=== PATIENT | male | born 1985 | race Caucasian/White ===

== ENCOUNTER 2019-09-01 01:12 | Emergency (ER) | payer MEDICAID ==
[~2019-09-01] VITALS: Ht 167.6 cm; Wt 120.2 kg
[2019-09-01 01:17] VITALS: Ht 167.6 cm; Wt 120.2 kg
[2019-09-01 02:06] LABS: UA SPECIFIC GRAVITY 1.025 (1.005-1.035); microscopic required? YES; urine erythrocyte 3+ (NEGATIVE)
[2019-09-01 02:06] LABS: BASOPHIL % 0.9 % (0-2); PLATELET COUNT 218 x10^3mcL (130-400); RED CELL DISTRIBUTION WIDTH 14.3 % (11.5-14.5)
[2019-09-01 02:10] LABS: CALCIUM 9.2 mg/dL (8.5-10.1); CARBON DIOXIDE 30.1 mmol/L (21-32); CREATININE SERUM 1.7 mg/dL (0.7-1.3); POTASSIUM SERUM 3.7 mmol/L (3.5-5.1)
[2019-09-01 02:14] LABS: ALBUMIN 3.8 g/dL (3.4-5.0); BILIRUBIN TOTAL 0.6 mg/dL (0.20-1.00); URIC ACID 11.8 mg/dL (3.5-7.2)
[2019-09-01 03:23] VITALS: BP 131/84
== END 2019-09-01 03:23 | disposition home or self-care (01) ==
LOC: ED 01:12
PROVIDERS: Emergency Medicine
DX: N20.0 Calculus of kidney (principal); E11.65 Type 2 diabetes mellitus with hyperglycemia; E66.9 Obesity, unspecified; Z68.41 Body mass index [BMI] 40.0-44.9, adult
CPT/HCPCS: J1885; J2405

== ENCOUNTER 2019-12-14 15:38 | Emergency (ER) | payer MEDICAID ==
[~2019-12-14] VITALS: Ht 167.6 cm; Wt 114.8 kg
[2019-12-14 15:49] VITALS: Ht 167.6 cm; Wt 114.8 kg
[2019-12-14 17:46] LABS: BASOPHIL % 0.3 % (0-2); PLATELET COUNT 189 x10^3mcL (130-400); RED CELL DISTRIBUTION WIDTH 13.3 % (11.5-14.5)
[2019-12-14 17:53] LABS: ALKALINE PHOSPHATASE 131 U/L (46-116); ALT/SGPT 169 U/L (16-63); AST/SGOT 80 U/L (15-37); BILIRUBIN TOTAL 0.6 mg/dL (0.20-1.00); CALCIUM 9.4 mg/dL (8.5-10.1); CARBON DIOXIDE 28.3 mmol/L (21-32); CHLORIDE SERUM 97 mmol/L (98-107); CREATININE SERUM 1.3 mg/dL (0.7-1.3); GFR1 > 60 mL/min; LIPASE 486 IU/L (73-393); POTASSIUM SERUM 4.4 mmol/L (3.5-5.1); SODIUM SERUM 136 mmol/L (136-145)
[2019-12-14 17:55] LABS: TOTAL PROTEIN, SERUM 8.7 g/dL (6.4-8.2)
[2019-12-14 17:56] LABS: ALBUMIN 4.1 g/dL (3.4-5.0); GLUCOSE SERUM 463 mg/dL (74-106)
[2019-12-14 20:30] VITALS: BP 140/103
== END 2019-12-14 20:30 | disposition home or self-care (01) ==
LOC: ED 15:38
PROVIDERS: Student in an Organized Health Care Education/Training Program
DX: E11.65 Type 2 diabetes mellitus with hyperglycemia (principal); I86.1 Scrotal varices; N50.82 Scrotal pain
CPT/HCPCS: 82962

== ENCOUNTER 2019-12-15 19:05 | Emergency (ER) | payer MEDICAID ==
[~2019-12-15] VITALS: Ht 172.7 cm; Wt 114.3 kg
[2019-12-15 19:21] VITALS: Ht 172.7 cm; Wt 114.3 kg
[2019-12-15 20:20] VITALS: BP 150/97
== END 2019-12-15 20:20 | disposition home or self-care (01) ==
LOC: ED 19:05
DX: K64.4 Residual hemorrhoidal skin tags (principal)
CPT/HCPCS: 82962